=== PATIENT | female | born 1970 | race Caucasian/White ===

== ENCOUNTER 2022-12-25 19:51 | Emergency (ER) | payer MEDICAID ==
[~2022-12-25] VITALS: Ht 154.9 cm; Wt 73.9 kg
[2022-12-25 20:03] VITALS: BP 104/68
--- NOTE | 2022-12-25 20:25 | NUR ---
PT PLACED IN BED 7 C/O L KNEE PAIN. PT STATED, THAT SHE TWISTED HER KNEE WHILE SHE WAS AT WORK. PT STATED, SHE IS HAVING A HARD TIME WALKING DUE TO THE PAIN.
--- NOTE | 2022-12-25 20:27 | NUR ---
PT AWAITING TO BE SEEN.
--- NOTE | 2022-12-25 20:51 | NUR ---
X-Ray at bedside.
--- NOTE | 2022-12-25 20:54 | NUR ---
BS X-RAY BEING PERFORMED.
[2022-12-25] MEDS ORDERED: KETOROLAC 60 MG/2 ML VIAL IM ONE (21:15)
--- NOTE | 2022-12-25 21:23 | NUR ---
Dr. Melton examining patient.
[2022-12-25] MEDS ORDERED: IBUP-2213 PO (21:35)
[2022-12-25] MEDS ORDERED: ACET-8905 PO (21:35)
--- NOTE | 2022-12-25 21:52 | NUR ---
Patient discharged with v/s stable. Written and verbal after care instructions given and explained. Patient alert, oriented and verbalized understanding of instructions. Ambulatory with steady gait. All questions addressed prior to discharge. ID band removed. Patient advised to follow up with PMD. Rx of IBUPROFEN HYDROCODONE given. Patient educated on indication of medication including possible reaction and side effects. Opportunity to ask questions provided and answered.
== END 2022-12-25 21:52 | disposition home or self-care (01) ==
LOC: MED 19:51
DX: S83.92XA Sprain of unspecified site of left knee, initial encounter (principal); J45.909 Unspecified asthma, uncomplicated; Z98.890 Other specified postprocedural states; Z88.0 Allergy status to penicillin; X50.1XXA Overexertion from prolonged static or awkward postures, initial encounter; Y93.89 Activity, other specified; Y92.89 Other specified places as the place of occurrence of the external cause; Y99.0 Civilian activity done for income or pay
CPT/HCPCS: 73562; 96372; 99283; J1885